=== PATIENT | female | born 1985 | race Caucasian/White ===

== ENCOUNTER 2017-04-27 22:53 | Emergency (ER) | payer BC ==
[~2017-04-27] VITALS: Ht 170.2 cm; Wt 97.5 kg
[2017-04-27 22:58] VITALS: BP_SYST 112
--- NOTE | 2017-04-27 22:58 | NUR ---
Patient AAO x4, vital signs stable, place in waiting room at this time. MD aware of patient condition. Will continue to monitor.
[2017-04-27 23:37] LABS: BASOPHILS % (AUTO) 0.6 % (0.0-2.0); EOSINOPHILS % (AUTO) 0.4 % (0.0-4.0); HEMOGLOBIN 10.3 g/dL (12.0-16.0); LYMPHOCYTES # (AUTO) 2.5 K/uL (1.0-5.5); LYMPHOCYTES % (AUTO) 33.4 % (20.5-51.5); MEAN CORPUSCULAR HEMOGLOBIN 22 pg (27-31); MEAN CORPUSCULAR HGB CONC 31 % (32-36); MEAN CORPUSCULAR VOLUME 70 fL (79.0-98.0); MONOCYTES # (AUTO) 0.3 K/uL (0.0-1.0); MONOCYTES % (AUTO) 4.5 % (1.7-9.3); NEUTROPHILS # (AUTO) 4.5 K/uL (1.8-7.7); NEUTROPHILS % (AUTO) 61.1 % (40.0-70.0); PLATELET COUNT (AUTO) 279 K/uL (130-430); RED BLOOD CELL COUNT(AUTO) 4.72 MIL/uL (4.2-6.2); RED CELL DISTRIBUTION WIDTH 15.2 % (9.0-15.0); WHITE BLOOD COUNT (AUTO) 7.3 K/uL (4.8-10.8)
[2017-04-27 23:42] LABS: ANION GAP 12 (5-15); CHLORIDE 104 mmol/L (98-107); CREATININE 0.71 mg/dL (0.55-1.30); GLUCOSE 93 mg/dL (70-99); POTASSIUM 3.3 mmol/L (3.5-5.1); SODIUM SERUM 140 mmol/L (136-145); UREA NITROGEN, BLOOD 14 mg/dL (8-21)
[2017-04-27 23:44] LABS: GFR AFRICAN AMERICAN 123 mL/min (>90)
[2017-04-27 23:51] LABS: ALANINE AMINOTRANSFERASE 31 U/L (12-78); ALBUMIN 3.9 g/dL (3.4-4.8); ASPARTATE AMINOTRANSFERASE 23 U/L (10-37); TOTAL BILIRUBIN 0.2 mg/dL (0.0-1.0)
--- NOTE | 2017-04-28 00:50 | NUR ---
Patient to ER bed 5 to gown for evaluation. Side rails up. Report given to STEPAN Patel.
--- NOTE | 2017-04-28 00:55 | NUR ---
Patient AAOx4, ambulatory with steady gait. Patient states having chest pain for approximately 1 week prior to ER visit. Patient states having SOB for approximately 1 week prior to ER visit. Patient states having episodes of intermittent nausea since earlier today, denies nausea at this time. Patient denies chest pain and SOB at this time. No signs of distress noted. Patient denies any other complaints.
[2017-04-28] MEDS ORDERED: FERROUS SULFATE 325 MG TABLET.DR PO ONE (01:00)
--- NOTE | 2017-04-28 01:00 | NUR ---
SHWETA Retana at bedside examining patient.
[2017-04-28] MEDS ORDERED: LORazepam 2 MG/ML VIAL (FOR ER USE) IM ONE (02:00)
--- NOTE | 2017-04-28 02:00 | NUR ---
No adverse effects to medication noted.
--- NOTE | 2017-04-28 02:10 | NUR ---
Patient's medication did not scan. Patient allergies verified at bedside prior to administration of medication. Correct patient, medication, dose, route, time, and documentation verified prior to administration.
--- NOTE | 2017-04-28 02:20 | NUR ---
no adverse effects to medication noted.
--- NOTE | 2017-04-28 02:43 | NUR ---
Patient given written and verbal discharge instructions and verbalizes understanding. ER MD discussed with patient the results and treatment provided. Patient in stable condition. ID arm band removed. Rx of flexeril given. Patient educated on pain management and to follow up with PMD. Pain Scale 0/10. Opportunity for questions provided and answered.
[2017-04-28 02:58] VITALS: BP_SYST 115
== END 2017-04-28 02:43 | disposition home or self-care (01) ==
LOC: SED 22:53
DX: M94.0 Chondrocostal junction syndrome [Tietze] (principal); F41.9 Anxiety disorder, unspecified
CPT/HCPCS: 36415; 71010; 80053; 84484; 85025; 93005; 96372; 99285; J2060